=== PATIENT | male | born 1945 | race Caucasian/White ===

== ENCOUNTER → 2017-01-06 | Outpatient (CLI) | payer OTHER ==
--- NOTE | 2017-01-06 09:43 | US ---
EXAMINATION TYPE: US abdomen complete DATE OF EXAM: 01/06/2017 7:40 AM COMPARISON: NONE CLINICAL HISTORY: 71 year-old male abdominal Aortic Aneurysm without rupture I71.4. AAA TECHNIQUE: Multiple sonographic images of the abdomen are obtained. FINDINGS: [employer] NOTES: Technical limitations due to patient's body habitus and large amount of overlying bowel content. Liver Length: 20.0 cm Gallbladder Wall: 0.4 cm CBD: 0.4 cm Spleen: 16.2 cm Right Kidney: 11.5 x 5.3 x 5.4 cm Left Kidney: 11.2 x 5.9 x 5.5 cm Pancreas: Obscured by bowel gas Liver: enlarged, visualized portions appear echogenic and heterogeneous. Gallbladder: No abnormal gallbladder distention or pericholecystic fluid. A few gallstones are prese nt measuring up to 1.2 cm. Gallbladder wall is borderline to mildly thickened at 4 mm. Evidence for sonographic Atkins's sign: No CBD: wnl Spleen: enlarged Right Kidney: no evidence of hydronephrosis Left Kidney: no evidence of hydronephrosis Upper IVC: unable to visualize Abd Aorta: Proximal abdominal aorta is obscured. The mid abdominal aorta is measured at 2.9 cm on tr ansverse images. The distal abdominal aorta is measured at 3.1 cm on transverse images. IMPRESSION: 1. Hepatomegaly with findings suggesting nonspecific hepatocellular disease or hepatic steatosis. Cor relate with LFTs, lipid profile, and patient's risk factors. 2. Borderline to mild gallbladder wall thickening with cholelithiasis. There is no abnormal distentio n or sonographic Atkins sign. Correlate for possible chronic cholecystitis. 3. Ectasia of the mid abdominal aorta (2.9 cm) and mild aneurysm of the distal abdominal aorta (3.1 c m) as measured on transverse images. 4. Limited visualization of structures due to large body habitus and shadowing from bowel gas.
== END | disposition home or self-care (01) ==
LOC: RADUSWWP 06:56
PROVIDERS: ATTEND Family Medicine
DX: R16.0 Hepatomegaly, not elsewhere classified (principal); K80.20 Calculus of gallbladder without cholecystitis without obstruction; I71.4 Abdominal aortic aneurysm, without rupture; R93.9 Diagnostic imaging inconclusive due to excess body fat of patient
CPT/HCPCS: 76700

== ENCOUNTER → 2017-01-22 | Outpatient (CLI) | payer OTHER ==
--- NOTE | 2017-01-22 10:22 | MR ---
EXAMINATION TYPE: MR lumbar spine wo con DATE OF EXAM: 01/22/2017 COMPARISON: NONE HISTORY: spinal stenosis lsp TECHNIQUE: Multiplanar, multisequence images of the lumbar spine were acquired. L1-L2: Mild circumferential posterior disc bulge causes only slight anterior mass effect on the theca l sac L2-L3: Posterior circumferential extension of broad-based disc bulge causes only slight anterior mass effect on the thecal sac. There is facet arthropathy. No significant foraminal encroachment. L3-L4: Circumferential posterior extension of endplate disc complex results in some anterior effaceme nt on the thecal sac. There is facet arthropathy change. Listhesis contributes to cause foraminal enc roachment greater on the right than on the left. On mild central stenosis. L4-L5: Posterior circumferential extension of endplate disc complex extends toward the neural foramin a, causing encroachment left greater than right. Mild anterior mass effect on the thecal sac. Facet a rthropathy is present. L5-S1: There are facet arthropathy changes. No significant central stenosis. Circumferential extensio n of endplate disc complex encroaches somewhat on the neural foramina. Posterior extension of endplat e disc complex extends only minimally the posterior direction. Lumbar segments are intact. No paraspinal masses are identified. Conus medullaris has a normal appe arance. Lumbar vertebral bodies show preserved height. Minimal retrolisthesis grade 1 L4-5, anterolis thesis grade 1 L3-4. Hemangioma present within the L2 vertebral body. There is multilevel spondylosis with endplate discogenic marrow signal change. Loss of disc height and signal present at the interve rtebral levels. IMPRESSION: Degenerative disc disease, facet arthropathy as described.
== END | disposition home or self-care (01) ==
LOC: RADMRIMAIN 08:45
PROVIDERS: ATTEND Physician Assistant
DX: M51.36 Other intervertebral disc degeneration, lumbar region (principal); M46.97 Unspecified inflammatory spondylopathy, lumbosacral region; M48.06 Spinal stenosis, lumbar region
CPT/HCPCS: 72148

== ENCOUNTER → 2019-10-01 | Outpatient (CLI) | payer OTHER ==
[2019-10-01 15:06] LABS: African American GFR (CKD) >90 (>60 ml/min/1.73 sqM); Blood Urea Nitrogen 13 mg/dL (9-20); Non-African American GFR(CKD) 87 (>60 ml/min/1.73 sqM)
--- NOTE | 2019-10-01 15:57 | CT ---
EXAMINATION TYPE: CT angio abdomen DATE OF EXAM: 10/01/2019 COMPARISON: Ultrasound 01/06/2017 HISTORY: AAA CT DLP: 1688.5 mGycm, Automated Exposure Control for Dose Reduction was Utilized. CONTRAST: CT scan of the abdomen and pelvis is performed with oral and with IV Contrast, patient injected with 100 mL of Isovue 370. FINDINGS: LUNG BASES: Coronary artery calcification noted.. LIVER/GB: Tiny gallstone noted.. PANCREAS: No significant abnormality is seen. SPLEEN: Spleen measures 17 cm correlate for splenomegaly.. ADRENALS: No significant abnormality is seen. KIDNEYS: No significant abnormality is seen. BOWEL: No significant abnormality is seen. AORTA: There is atherosclerotic change of the aorta with no significant stenosis maximal dimension of the aorta measures 3 cm compatible with mild aneurysmal dilation below the level the renal arteries. Mild ectasia of the origins of the common iliac arteries are noted with atherosclerotic changes. There are two right-sided renal arteries and a single left-sided renal artery. Mild atherosclerotic c hanges. Mild atherosclerotic change of the celiac axis and SMA origins. LYMPH NODES: No greater than 1cm abdominal or pelvic lymph nodes are appreciated. OSSEOUS STRUCTURES: Hypertrophic and degenerative change of the vertebral column. Lucency and L2 like ly represents a small vertebral angioma. Multilevel facet arthropathy. Canal stenosis L3-4, L4-5 and L5-S1 suspected. OTHER: No significant additional abnormality is seen. IMPRESSION: 1. Infrarenal 3 cm abdominal aortic aneurysm. Mild atherosclerotic changes. 2. Splenomegaly measuring 17 cm. 3. Tiny gallstone.
== END | disposition home or self-care (01) ==
LOC: RADCTMAIN 14:05
DX: I71.4 Abdominal aortic aneurysm, without rupture (principal)
CPT/HCPCS: 82565; 84520; 74175; 36415; Q9967

== ENCOUNTER → 2022-03-18 | Outpatient (CLI) | payer MEDICARE ==
--- NOTE | 2022-03-18 10:15 | US ---
EXAMINATION TYPE: US scrotum with doppler. Grayscale and color Doppler Duplex imaging performed of t he scrotum. DATE OF EXAM: 03/18/2022 COMPARISON: NONE CLINICAL HISTORY: N50.812 LT TESTICULAR PAIN. EXAM MEASUREMENTS: TESTICLES: Right Testicle: 4.9 x 2.8 x 3.9 cm Left Testicle: 4.8 x 3.2 x 3.1 cm EPIDIDYMIS HEAD: Right Epididymis: 1.1 x 0.9 cm, 2.7 x 1.6 x 1.7 cm complex cystic area adjacent to epididymis head. Left Epididymis: not identified. Doppler performed to assess for testicular vascularity; good bilateral color flow and waveforms are s een. There is no evidence of testicular torsion. Presence of hydroceles: small amount of fluid around right testicle. Large 6.2 x 4.8 x 4.8 cm cystic area superior and medial to left testicle displacing the left testicle. Presence of varicoceles: Tubular structures posterior to right testicle that has increased flow with valsalva. IMPRESSION: 1. Complex cystic area with debris in the right epididymis. Right-sided hydrocele is present. 2. Some left-sided varicocele.
== END | disposition home or self-care (01) ==
LOC: RADUSWWP 08:35
PROVIDERS: ATTEND Family Medicine
DX: N43.3 Hydrocele, unspecified (principal); I86.1 Scrotal varices; N50.812 Left testicular pain
CPT/HCPCS: 76870; 93975

== ENCOUNTER 2022-08-07 09:09 | Day surgery (SDC) | payer MEDICARE ==
[~2022-08-07 09:09] MED LIST: LACTATED RINGERS 1,000 ML IV SCH; LIDOCAINE 1% (10MG/ML) FOR IV START INTRADERMA PRN; MOXIFLOXACIN HCL 0.5% DROPS 3 ML BTL OP PRN; TETRACAINE 0.5% OPHTH (PF) DROPS 4 ML BTL OP PRN; TIMOLOL 0.5% OPHTH DROPS 5 ML BTL OP PRN
[2022-08-07] MEDS: CYCLOPENTOLATE 1% OPHTH SOLN 2 ML BTL OP PRN ×3 (10:12→10:24)
[2022-08-07] MEDS: PHENYLEPHRINE 2.5% OPHTH DRP 2ML OP PRN ×3 (10:15→10:27)
[2022-08-07 10:16] VITALS: RESP 16; TEMP 97.8
[2022-08-07] MEDS ORDERED: fentaNYL (PF) 50 MCG/ML 2 ML AMP ONE (10:59)
[2022-08-07] MEDS ORDERED: MIDAZOLAM 2 MG/2 ML VIAL ONE (10:59)
[2022-08-07] MEDS ORDERED: EPINEPHrine (PF) 0.3 ML in BALANCED SALT IRRIG SOLN COMB2 500 ML IRRIGATION ONE (11:12)
[2022-08-07] MEDS ORDERED: HYALURONATE SODIUM INTRAOCULAR 1 EACH SYRINGE (12MG/ML) INTRAOCULA ONE (11:13)
[2022-08-07] MEDS ORDERED: LIDOCAINE 1% (PF) 10MG/ML VIAL MISCELLANE ONE (11:14)
[2022-08-07] MEDS ORDERED: BALANCED SALT IRRIG SOLN COMB2 15 ML IRRIG.SOLN INTRAOCULA ONE (11:14)
--- NOTE | 2022-08-07 11:38 | P.OP ---
Date of Procedure: 08/07/22 Preoperative Diagnosis: NS & CS Postoperative Diagnosis: same Procedure(s) Performed: PIOL, OS Implants: [id number] 20.50 Anesthesia: MAC Surgeon: Osvaldo Reid Pathology: none sent Condition: stable Disposition: same day Indications for Procedure: blurry vision Operative Findings: no complications
[2022-08-07 11:47] VITALS: BP 174/72; PULSE 46
--- NOTE | 2022-08-08 17:44 | OP ---
OPERATIVE REPORT PROCEDURES PERFORMED: Phacoemulsification of cataract and intraocular lens implant of the left eye. 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 ANESTHESIA: Topical. ESTIMATED BLOOD LOSS: None. SPECIMEN TAKEN: None. NARRATIVE: After obtaining the appropriate consent, the patient was brought to the operating room. There, he was asked to sit upright, and the axes of 0 and 180 degrees were identified and marked with a gentian maria victoria marker. He was then placed in the proper supine position under cardiac monitoring and prepped and draped in the usual sterile manner. He was approached from his left temporal side, and using previously-acquired corneal topography information, the axis of 77 degrees was identified and marked with the Written axis marker. At the 5 o'clock position, an MVR blade was used to create a paracentesis port. Through this opening, 1% Xylocaine MPF 50:50 mix with balanced salt solution was injected into the anterior chamber. This was followed by stabilization of the anterior chamber with Amvisc. At the 3 o'clock position, a 2.5 mm keratome was used to create a self-sealing corneal flap incision. Through this opening, a 7 mm Malyugin ring was inserted on the pupillary sphincter to enlarge the pupil. A cystotome was then introduced to begin a continuous tear capsulorrhexis, which was then completed using the Utrata forceps. Hydrodissection and hydrodelineation of the lens were accomplished with balanced salt solution. Phacoemulsification of lens utilizing phaco chop was accomplished in 13.47 seconds at 15% power. Additional Xylocaine MPF was instilled into the anterior chamber. This was followed by removal of the remaining cortical material as well as careful polishing of the posterior capsule was conducted with irrigation and aspiration. Additional Amvisc was then used to stabilize the capsular bag, and a Bausch and Lomb, [id number] 200, 20.5 diopter posterior chamber intraocular lens was inserted into the capsular bag without difficulty. The remaining viscoelastic was removed from in and around the intraocular lens, and the lens was rotated to align with the 77-degree axis norma previously placed on the patient's cornea. A small amount of additional viscoelastic was then placed in the anterior chamber. The Malyugin ring was disinserted and removed from the anterior chamber of the eye. The remaining viscoelastic was then irrigated away with irrigation and aspiration. The eye was then brought to normal intraocular pressure through the paracentesis port. The wounds were confirmed watertight and sealed with Tisseel to ensure watertight integrity. The patient then received 2 drops of 0.5% timolol followed by 2 drops of 0.5% moxifloxacin. He was then lightly patched and shielded in the usual manner. There were no complications from the procedure. He tolerated the procedure well and was returned to outpatient recovery in good condition. MMODL / IJN: [id number] /
== END 2022-08-07 12:50 | disposition home or self-care (01) ==
LOC: OR 09:09
PROVIDERS: ATTEND Ophthalmology
DX: H25.12 Age-related nuclear cataract, left eye (principal); H25.012 Cortical age-related cataract, left eye; H21.81 Floppy iris syndrome; I10 Essential (primary) hypertension; H52.222 Regular astigmatism, left eye; F43.10 Post-traumatic stress disorder, unspecified; M10.9 Gout, unspecified; Z79.2 Long term (current) use of antibiotics; Z79.52 Long term (current) use of systemic steroids; Z79.899 Other long term (current) drug therapy; Z87.891 Personal history of nicotine dependence; F10.20 Alcohol dependence, uncomplicated
CPT/HCPCS: 66982; V2632; C1762; J2250; J0171; J3010; J2001

== ENCOUNTER 2022-08-21 07:23 | Day surgery (SDC) | payer MEDICARE ==
[~2022-08-21 07:23] MED LIST changes: +CYCLOPENTOLATE 1% OPHTH SOLN 2 ML BTL OP PRN; -LIDOCAINE 1% (10MG/ML) FOR IV START INTRADERMA PRN; +PHENYLEPHRINE 2.5% OPHTH DRP 2ML OP PRN
[2022-08-21 08:28] VITALS: RESP 16; TEMP 97.8
[2022-08-21] MEDS ORDERED: LIDOCAINE 1% (10MG/ML) FOR IV START INTRADERMA ONE (08:35)
[2022-08-21] MEDS ORDERED: fentaNYL (PF) 50 MCG/ML 2 ML AMP ONE (08:51)
[2022-08-21] MEDS ORDERED: MIDAZOLAM 2 MG/2 ML VIAL ONE (08:51)
[2022-08-21] MEDS ORDERED: HYALURONATE SODIUM INTRAOCULAR 1 EACH SYRINGE (12MG/ML) INTRAOCULA ONE (09:00)
[2022-08-21] MEDS ORDERED: EPINEPHrine (PF) 0.3 ML in BALANCED SALT IRRIG SOLN COMB2 500 ML IRRIGATION ONE (09:01)
[2022-08-21] MEDS ORDERED: BALANCED SALT IRRIG SOLN COMB2 15 ML IRRIG.SOLN INTRAOCULA ONE (09:01)
[2022-08-21] MEDS ORDERED: LIDOCAINE 1% (PF) 10MG/ML VIAL SQ ONE (09:01)
--- NOTE | 2022-08-21 09:24 | P.OP ---
Date of Procedure: 08/21/22 Preoperative Diagnosis: NS & CS & floppy Iris Postoperative Diagnosis: same Procedure(s) Performed: PIOL, OD Implants: [id number] 19.00 Anesthesia: MAC Surgeon: Osvaldo Reid Pathology: none sent Condition: stable Disposition: same day Indications for Procedure: blurry vision Operative Findings: no complications
[2022-08-21 10:02] VITALS: BP 136/72; PULSE 53
--- NOTE | 2022-08-21 23:36 | OP ---
OPERATIVE REPORT PREOPERATIVE DIAGNOSES: Nuclear sclerosis, cortical sclerosis. POSTOPERATIVE DIAGNOSIS: Nuclear sclerosis. OPERATION: Phacoemulsification of cataract and intraocular lens implant of the right eye. ESTIMATED BLOOD LOSS: Zero. SPECIMEN TAKEN: None. NARRATIVE: After obtaining the appropriate consent, the patient was brought to the operating room where the patient was placed under cardiac monitoring and prepped and draped in the usual sterile manner. At the 11 o'clock position, a 15-degree super sharp blade was used to create a paracentesis followed by instillation of 1% Xylocaine MPF 50:50 mix with BSS into the anterior chamber. This was followed by Amvisc viscoelastic to stabilize the anterior chamber. At the 9 o'clock position a self-sealing corneal flap incision was created using 2.8 mm antony keratome. A cystotome was used to initiate a continuous tear capsulorrhexis which was completed with the Utrata forceps. A Binkhorst cannula was used to hydrodissect the lens nucleus followed by hydrodelineation. Phacoemulsification of the lens was performed utilizing phaco chop in 15.12 seconds at 10% power. The remaining cortical material was removed using the irrigation aspiration mode followed by additional 1% Xylocaine MPF into the anterior chamber followed by viscoelastic to stabilize the capsular bag. A Bausch and Lomb MX60E 19.0 diopters posterior chamber lens was placed into the capsular bag without difficulty. The remaining viscoelastic material was removed from the anterior chamber with the irrigation/aspiration. Balanced salt solution was used to normalize the intraocular pressure. The incision was checked for watertight integrity. The patient then received 2 drops of 0.5% timolol followed by 2 drops Vigamox, was lightly patched and shielded in the usual manner. There were no complications from the procedure. The patient tolerated the procedure well and was returned to recovery in good condition. MMODL / IJN: [id number] /
== END 2022-08-21 10:05 | disposition home or self-care (01) ==
LOC: OR 07:23
PROVIDERS: ATTEND Ophthalmology
DX: H25.11 Age-related nuclear cataract, right eye (principal); I10 Essential (primary) hypertension; E66.01 Morbid (severe) obesity due to excess calories; M10.9 Gout, unspecified; Z68.33 Body mass index [BMI] 33.0-33.9, adult; Z79.899 Other long term (current) drug therapy
CPT/HCPCS: 66982; C1780; J2250; J0171; J3010; J2001